=== PATIENT | female | born 1935 | race Caucasian/White ===

== ENCOUNTER → 2017-10-06 18:14 | Outpatient (CLI) | payer MEDICARE ==
[2014-12-21 06:03] VITALS: BMI 22.6
[~2017-10-06 18:14] MED LIST: CALCIUM 500 +1 EAC3 PO; MULTIPLE VITAMI1 TA1 PO
== END | disposition home or self-care (01) ==
LOC: D.LABREF 18:14
DX: R19.7 Diarrhea, unspecified (principal)

== ENCOUNTER → 2017-10-13 19:19 | Outpatient (CLI) | payer MEDICARE ==
[2014-12-21 06:03] VITALS: BMI 22.6
[2017-10-13 20:46] LABS: BASOPHILS 0.7 % (0-2); EOSINOPHILS 4.9 % (0-7); HEMATOCRIT 34.5 % (36.0-48.0); HEMOGLOBIN 10.6 g/dL (12-16); IMMATURE GRANULOCYTES 0.1 % (0-5); LYMPHOCYTES 26.9 % (15-50); MCH 29.3 pg (26.0-34.0); MCHC 30.7 g/dL (31.0-37.0); MCV 95.3 fL (80.0-100.0); MEAN PLATELET VOLUME 10.4 fL (7.4-10.4); MONOCYTES 15.5 % (2-11); NEUTROPHILS 51.9 % (40-80); RBC 3.62 10x6/uL (4.00-5.40); RDW 14.9 % (11.5-14.5); WBC 7.2 10x3/uL (4.8-10.8)
[2017-10-13 20:51] LABS: PLATELET COUNT 378 10x3/uL (130-400)
== END | disposition home or self-care (01) ==
LOC: D.LABREF 19:19
PROVIDERS: Physical Medicine & Rehabilitation
DX: Z48.815 Encounter for surgical aftercare following surgery on the digestive system (principal)

== ENCOUNTER → 2017-10-28 19:36 | Outpatient (CLI) | payer MEDICARE ==
[2014-12-21 06:03] VITALS: BMI 22.6
[2017-10-28 20:20] LABS: APPEARANCE CLEAR (CLEAR); BILIRUBIN NEGATIVE (NEGATIVE); COLOR YELLOW (YELLOW); GLUCOSE NEGATIVE (NEGATIVE); KETONE NEGATIVE (NEGATIVE); NITRITE NEGATIVE (NEGATIVE); PROTEIN NEGATIVE (NEGATIVE); SPECIFIC GRAVITY 1.015 (1.005-1.020); UROBILINOGEN NORMAL (NORMAL)
== END | disposition home or self-care (01) ==
LOC: D.LABREF 19:36
PROVIDERS: Family Medicine
DX: R39.15 Urgency of urination (principal)